=== PATIENT | male | born 1995 | race Two or more races ===

== ENCOUNTER 2017-06-13 14:24 | Emergency (ER) | payer SELFPAY ==
[~2017-06-13] VITALS: Ht 182.9 cm; Wt 79.4 kg
[2017-06-13] MEDS ORDERED: UNOBMED (14:35)
[2017-06-13 14:51] VITALS: BP 141/84
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
[2017-06-13 15:05] VITALS: BP 134/75
== END 2017-06-13 15:05 ==
LOC: EDBD 14:24 → EMR 14:38
DX: F10.129 Alcohol abuse with intoxication, unspecified (principal); F18.129 Inhalant abuse with intoxication, unspecified; F91.8 Other conduct disorders
CPT/HCPCS: 99283